=== PATIENT | female | born 1955 | race Caucasian/White ===

== ENCOUNTER → 2021-09-04 | Outpatient (CLI) | payer OTHER ==
[~2021-09-04] VITALS: Ht 154.9 cm; Wt 49.9 kg
[~2021-09-04] MED LIST: ESTRADIOL 1 MG T1 M1 PO; PROTONIX40 M2 PO; QUESTRAN PACKET4 GM PO; TRAMADOL HCL100 M1 PO
--- NOTE | ~2021-09-04 | P ---
[facility] [place] [address] PROCEDURE REPORT Name: PILO EDUARDO Room #: [facility] [id number] Admission: 09/04/21 Attend Phys: Jas Nam Discharge: Date of : 55 Report #: [id number] THIS REPORT FOR: cc: Ming Calvo MD, Christopher B. MD McElhinney, Christian C. MD ~ cc: Volodymyr Calvo MD DATE OF SERVICE: 09/04/2021 PROCEDURE PERFORMED: Upper endoscopy with biopsies and esophageal dilation. HISTORY OF PRESENT ILLNESS: The patient is a 66-year-old female with a history of gastroesophageal reflux disease and dysphagia, which has become progressively worse. 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 No evidence of hiatal hernia or stricture was noted. Plan is for upper endoscopy. The patient takes Protonix on a daily basis. DESCRIPTION OF PROCEDURE: The risks and benefits of the procedure were explained to the patient, those risks including but not limited to bleeding, perforation and the risk of sedation. She understood these risks and gave informed consent. Sedation was given using propofol per Anesthesia. Next, using a standard Olympus upper endoscope, the scope was placed in the patient's mouth and advanced under direct vision through the esophagus, stomach and into the second portion of the duodenum. The larynx was normal in appearance. There was a mild narrowing in the proximal esophagus. No stricture. The mid esophagus was normal. 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 Biopsies were obtained. Upon entering the stomach, a small 2 cm hiatal hernia was noted. Overall, the gastric mucosa was normal. The pylorus was normal and patent. The duodenal bulb, first and second portion were all normal. The scope was then brought back up into the patient's stomach and a Savary guidewire was inserted through the scope, leaving the guidewire in place as the scope was then withdrawn. Next, a 51-Monegasque Savary dilation of the esophagus was then performed without difficulty. The wire and dilator removed. The scope was reintroduced into the patient's stomach. No evidence of mucosal tear was noted after dilation. The scope was then withdrawn and the procedure terminated. The patient tolerated the procedure well. IMPRESSION: 1. Mild narrowing proximal esophagus, status post dilation. 2. 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 3. Small hiatal hernia. 4. Otherwise, normal upper endoscopy. [address] [address] PROCEDURE REPORT Name: PILO EDUARDO Room #: REG AUGUST Olson#: [id number] Admission: 09/04/21 Attend Phys: Jas Nam Discharge: Date of : 55 Report #: [id number] RECOMMENDATIONS: 1. Await biopsy results. 2. Observe the patient post-dilation. 3. Continue PPI therapy. Thank you for allowing me to participate in her care. By: [id number] Jas Ayala MD /nt
--- NOTE | 2021-09-08 15:07 | PATH ---
[facility] [address] [place] [address] PATHOLOGY RPT PROCEDURE Name: JULIET EDUARDO Room #: REG AUGUST [place].#: [id number] Admission: 09/04/21 Date of : 55 Discharge: Report #: [id number] Path Case #: [id number] [facility] Accession Number: [id number] . 01 Material submitted: . esophagus - DISTAL ESOPHAGUS R/O BOYER'S. Modifiers: distal . 01 Clinical history: . EGD DYSPHAGIA, COUGH HIATAL HERNIA . 02 Diagnosis: Esophagus "distal", biopsy: - Esophageal squamous and gastric cardia mucosa with reactive changes and chronic inflammation. - Negative for intestinal metaplasia, dysplasia, and malignancy. (MLK:benito; 09/07/2021) S 09/08/2021 1411 Local . 02 Electronically signed: . Nori Joyner MD, Pathologist NPI- [id number] . 01 Gross description: . The specimen is received in formalin, labeled "Juliet Eduardo, distal esophagus rule out Boyer's". Received are 3 segments of pale hernandez tissue ranging in size from 0.2 to 0.4 cm in maximum dimensions. The specimen is submitted entirely in cassette A1.([facility]; 09/04/2021) [facility] 09/04/2021 1647 Local . 02 Pathologist provided ICD-10: K20.90 . 02 CPT . 213583 Specimen Comment: A courtesy copy of this report has been sent to [phone], [phone] Specimen Comment: [id number] Specimen Comment: Report sent to / DR ARCE Performed at: 01 [facility] [address] [place] [address] [id number] MD Kevin Kirby MD Phone: [phone] Performed at: [address] [id number] [place] [address] PATHOLOGY RPT PROCEDURE Name: JULIET EDUARDO Room #: REG AUGUST Olson#: [id number] Admission: 09/04/21 Date of : 55 Discharge: Report #: [id number] Path Case #: [id number] MD Clayton Matta MD Phone: [phone]
== END | disposition home or self-care (01) ==
LOC: GI 07:49
PROVIDERS: ATTEND Specialist
DX: K22.2 Esophageal obstruction (principal); R13.19 Other dysphagia; K21.9 Gastro-esophageal reflux disease without esophagitis; K44.9 Diaphragmatic hernia without obstruction or gangrene; M19.90 Unspecified osteoarthritis, unspecified site; Z98.890 Other specified postprocedural states; Z79.899 Other long term (current) drug therapy; Z20.822 Contact with and (suspected) exposure to COVID-19; Z90.49 Acquired absence of other specified parts of digestive tract; Z90.710 Acquired absence of both cervix and uterus
CPT/HCPCS: 62110; 62900